=== PATIENT | male | born 1980 | race Caucasian/White ===

== ENCOUNTER 2018-08-28 23:58 | Emergency (ER) | payer OTHER ==
[~2018-08-28] VITALS: Ht 185.4 cm; Wt 102.1 kg
[2018-08-29] MEDS ORDERED: URIN D.S. TABL1 EACH PO (04:19)
[2018-08-29] MEDS ORDERED: TAMS0.4C PO (04:19)
[2018-08-29] MEDS ORDERED: KETO10TA2 PO (04:19)
[2018-08-29] MEDS ORDERED: ONDANSETRON ODT4 MG SL (04:19)
== END 2018-08-29 | disposition home or self-care (01) ==
LOC: ER 23:58
DX: N20.1 Calculus of ureter (principal)